=== PATIENT | male | born 1970 | race Caucasian/White ===

== ENCOUNTER 2016-11-04 16:58 | Emergency (ER) | payer BC ==
[~2016-11-04 16:58] MED LIST: ESCITALOPRAM20 MG PO; FISH OIL 1,0001 EAC1 PO; OTEZLA30 MG; RISPERDAL 0.5M0.5 MG
== END 2016-11-04 21:31 | disposition home or self-care (01) ==
LOC: ED 16:58
DX: R00.2 Palpitations (principal); F17.220 Nicotine dependence, chewing tobacco, uncomplicated

== ENCOUNTER → 2016-11-15 | Outpatient (CLI) | payer BC | LOC: CARDREHAB 15:21 | DX: R07.9 Chest pain, unspecified (principal); R00.2 Palpitations; E78.5 Hyperlipidemia, unspecified; Z95.0 Presence of cardiac pacemaker; F17.220 Nicotine dependence, chewing tobacco, uncomplicated ==

== ENCOUNTER → 2016-11-18 | Outpatient (CLI) | payer BC | LOC: RAD 08:43 | DX: R79.89 Other specified abnormal findings of blood chemistry (principal) ==

== ENCOUNTER → 2023-01-27 | Outpatient (CLI) | payer OTHER ==
[2023-01-27 10:36] LABS: BASO # 0.04 K/mm3 (0.02-0.10); EOS # 0.05 K/mm3 (0.04-0.40); EOS % 0.8 % (0.0-4.0); HEMATOCRIT 41.6 % (42.0-52.0); HEMOGLOBIN 14.8 g/dL (13.5-18.0); MEAN CELL VOLUME 88 fl (78-100); MEAN CORPUSCULAR HEMOGLOBIN 31 pg (27-31); MEAN CORPUSCULAR HGB CONC 36 g/dL (33-37); MEAN PLATELET VOLUME 9.4 fl (7.4-10.4); MONO # 0.45 K/mm3 (0.20-0.80); NEU # 4.28 K/mm3 (1.40-6.50); PLATELET COUNT 156 K/mm3 (130-400); RED BLOOD COUNT 4.71 M/mm3 (4.20-5.60); RED CELL DISTRIBUTION WIDTH 12.7 % (11.5-14.5); WHITE BLOOD COUNT 6.3 K/mm3 (4.8-10.8)
[2023-01-27 10:47] LABS: URINE APPEARANCE CLEAR; URINE COLOR LIGHT YELLOW; URINE PROTEIN(semi-quant) TRACE (NEGATIVE)
[2023-01-27 10:48] LABS: ALBUMIN 4.5 g/dL (3.5-5.0); POTASSIUM 3.9 mmol/L (3.5-5.1); URINE BILIRUBIN NEGATIVE (NEGATIVE); URINE BLOOD NEGATIVE (NEGATIVE); URINE GLUCOSE NEGATIVE (NEGATIVE); URINE KETONE NEGATIVE (NEGATIVE); URINE LEUKOCYTE ESTERASE NEGATIVE (NEGATIVE); URINE NITRATE NEGATIVE (NEGATIVE); URINE UROBILINOGEN NORMAL (NORMAL); URINE WBC 0-1 /hpf (0-3)
[2023-01-27 10:49] LABS: CALCIUM 9.6 mg/dL (8.3-10.5)
[2023-01-27 10:51] LABS: TOTAL PROTEIN 7.2 g/dL (6.4-8.3)
[2023-01-27 10:52] LABS: TOTAL BILIRUBIN 0.7 mg/dL (0.2-1.2)
[2023-01-27 21:53] LABS: CREATININE OTHER SOURCE 12 mg/dL (47-110)
== END ==
LOC: LAB 10:20
PROVIDERS: Family Medicine
DX: Z00.00 Encounter for general adult medical examination without abnormal findings (principal); E11.9 Type 2 diabetes mellitus without complications; E78.2 Mixed hyperlipidemia

== ENCOUNTER → 2024-02-17 | Outpatient (REF) | payer OTHER | LOC: LAB 08:57 | DX: K76.0 Fatty (change of) liver, not elsewhere classified (principal); E11.9 Type 2 diabetes mellitus without complications; E78.2 Mixed hyperlipidemia ==

== ENCOUNTER → 2024-05-03 | Outpatient (CLI) | payer OTHER | LOC: RAD 14:14 | DX: M51.36 Other intervertebral disc degeneration, lumbar region (principal) ==

== ENCOUNTER → 2024-07-01 | Outpatient (CLI) | payer OTHER | LOC: LAB 14:59 → RAD 14:59 → EDSTATUS 15:06 | DX: M25.852 Other specified joint disorders, left hip (principal) ==